=== PATIENT | female | born 1965 | race Caucasian/White ===

== ENCOUNTER 2017-12-15 20:42 | Emergency (ER) | payer SELFPAY ==
[~2017-12-15] VITALS: Ht 152.4 cm; Wt 65.0 kg
[2017-12-15 20:50] VITALS: BP 144/73; PULSE 126; RESP 20; TEMP 100.9; O2SAT 98
[2017-12-15] MEDS ORDERED: SODIUM CHLOR 0.9% 1000 ML INJ 1,000 ML IV SCH (21:02)
--- NOTE | 2017-12-15 21:07 | PD ---
HPI Chief Complaint: Cold / Flu Symptoms Time Seen by Provider: 20:56 Travel History International Travel<30 days: No Contact w/Intl Traveler<30days: No Traveled to known affect area: No History of Present Illness HPI 52-year-old female with no significant past medical history presents for evaluation of cough, congestion, sore throat, bilateral ear pressure and fevers and chills. Symptoms started yesterday. The cough is primarily dry. Sore throat hurts to swallow. She has been sleeping today and using NyQuil but symptoms persist which prompted evaluation. She reports that her daughter has similar symptoms. She denies recent travel. She denies abdominal pain, nausea or vomiting, diarrhea or constipation. No other complaints at this time. [facility] Past Medical History Medical History: Denies Significant Hx Diminished Hearing: No Tetanus Vaccination: Unknown Influenza Vaccination: No ?: Not LMP: menapause Past Surgical History Cholecystectomy: Yes Social History Alcohol Use: No Tobacco Use: Yes Substance Use: No Allergies-Medications (Allergen,Severity, Reaction): Coded Allergies: No Known Allergies (Unverified , 12/15/17) Reported Meds & Prescriptions Reported Meds & Active Scripts Active Azithromycin 250 Mg Tab 250 Mg PO DAILY 4 Days Review of Systems Except as stated in HPI: all other systems reviewed are Neg Physical Exam Narrative GENERAL: Well-developed well-nourished female who is coughing during examination. She is noted to be tachycardic with a low-grade fever. SKIN: Warm and dry. HEAD: Atraumatic. Normocephalic. EYES: Pupils equal and round. No scleral icterus. No injection or drainage. ENT: No nasal bleeding or discharge. Mucous membranes pink and moist. There is oral pharyngeal erythema without exudate. Uvula midline with no mass- effect. Voice is not hoarse or muffled no stridor or drooling. Tympanic membranes appear normal without erythema or air-fluid level. NECK: Trachea midline. No JVD. No lymphadenopathy. Neck supple full range of motion. CARDIOVASCULAR: Regular rate and rhythm. No murmur appreciated. RESPIRATORY: No accessory muscle use. Clear to auscultation. Breath sounds equal bilaterally. No crackles no wheezing no rhonchi GASTROINTESTINAL: Abdomen soft, non-tender, nondistended. Hepatic and splenic margins not palpable. Data Data Last Documented VS Vital Signs Date Time Temp Pulse Resp B/P (MAP) Pulse Ox O2 Delivery O2 Flow Rate FiO2 12/15/17 22:40 113 18 117/56 (76) 100 12/15/17 20:50 100.9 Orders Orders Sodium Chlor 0.9% 1000 Ml Inj (Ns 1000 M (12/15/17 21:02) Influenzae A/B Antigen (12/15/17 21:02) Complete Blood Count With Diff (12/15/17 21:02) Basic Metabolic Panel (Bmp) (12/15/17 21:02) Group A Rapid Strep Screen (12/15/17 21:02) Chest, Single Ap (12/15/17 ) Ketorolac Inj (Toradol Inj) (12/15/17 21:15) Strep Culture (Group A) (12/15/17 21:17) Azithromycin Inj (Zithromax Inj) (12/15/17 22:30) Ed Discharge Order (12/15/17 22:41) Labs Laboratory Tests Test 12/15/17 21:17 White Blood Count 14.7 TH/MM3 Red Blood Count 4.71 MIL/MM3 Hemoglobin 14.2 GM/DL Hematocrit 41.6 % Mean Corpuscular Volume 88.3 FL Mean Corpuscular Hemoglobin 30.1 PG Mean Corpuscular Hemoglobin Concent 34.1 % Red Cell Distribution Width 13.0 % Platelet Count 286 TH/MM3 Mean Platelet Volume 8.3 FL Neutrophils (%) (Auto) 84.1 % Lymphocytes (%) (Auto) 9.4 % Monocytes (%) (Auto) 5.3 % Eosinophils (%) (Auto) 0.8 % Basophils (%) (Auto) 0.4 % Neutrophils # (Auto) 12.3 TH/MM3 Lymphocytes # (Auto) 1.4 TH/MM3 Monocytes # (Auto) 0.8 TH/MM3 Eosinophils # (Auto) 0.1 TH/MM3 Basophils # (Auto) 0.1 TH/MM3 CBC Comment DIFF FINAL Differential Comment Blood Urea Nitrogen 11 MG/DL Creatinine 1.17 MG/DL Random Glucose 127 MG/DL Calcium Level 9.3 MG/DL Sodium Level 136 MEQ/L Potassium Level 4.4 MEQ/L Chloride Level 101 MEQ/L Carbon Dioxide Level 22.4 MEQ/L Anion Gap 13 MEQ/L Estimat Glomerular Filtration Rate 49 ML/MIN MDM Medical Decision Making Medical Screen Exam Complete: Yes Emergency Medical Condition: Yes Medical Record Reviewed: Yes Differential Diagnosis Influenza, pharyngitis, pneumonia, bronchitis, otitis media, sinusitis Narrative Course 52-year-old female with 2 days of cough, sore throat, congestion, fevers and chills. Plan is for chest x-ray, influenza antigen, rapid strep screen, basic lab work, IV fluids, Toradol. Lab work reveals a WBC count of 14.7 with 84% neutrophils, BMP reveals a GFR 49 , glucose 127, influenza negative, rapid strep screen negative, chest x-ray reveals scarring at the right lung base with no other abnormalities. Clinically I suspect that the patient could have an early pneumonia given her fevers, leukocytosis, cough and congestion. She will be treated as such with azithromycin, first dose given IV tonight. Stable for discharge. Diagnosis Primary Impression: Respiratory infection Additional Instructions: Medication as prescribed. Stay well hydrated and well-nourished. Return for any emergent medical conditions. Med/Other Pt SpecificInfo: Prescription(s) given Scripts Azithromycin (Azithromycin) 250 Mg Tab 250 MG PO DAILY for Infection for 4 Days, #4 TAB 0 Refills Prov: Martinez Washburn MD 12/15/17 Disposition: 01 DISCHARGE HOME Condition: Stable Edvin Salas Dec 15, 2017 21:07
[2017-12-15] MEDS ORDERED: KETOROLAC TROMETHAMINE 30 MG/ML (IVP) VIAL IV PUSH ONE (21:15)
--- NOTE | 2017-12-15 21:50 | RADRPT ---
EXAM DATE/TIME: 12/15/2017 21:18 [facility] COMPARISON: No previous studies available for comparison. INDICATIONS : Cough, congestion MEDICAL HISTORY : None. SURGICAL HISTORY : None. ENCOUNTER: Initial ACUITY: 2 days PAIN SCORE: 0/10 LOCATION: chest FINDINGS: A single view of the chest demonstrates the lungs to be symmetrically aerated without evidence of mas s, infiltrate or effusion. The cardiomediastinal contours are unremarkable. Osseous structures are intact. CONCLUSION: 1. No acute findings. Minimal linear scarring right lung base. Blu Carrera MD on December 15, 2017 at 21:47 Board Certified Radiologist. This report was verified electronically.
[2017-12-15 21:53] LABS: AUTOMATED NEUTROPHIL # 12.3 TH/MM3 (1.8-7.7); BASOPHIL # 0.1 TH/MM3 (0-0.2); BASOPHIL % 0.4 % (0.0-2.0); EOSINOPHIL # 0.1 TH/MM3 (0-0.4); EOSINOPHIL % 0.8 % (0.0-4.0); HEMATOCRIT 41.6 % (35.0-46.0); HEMOGLOBIN 14.2 GM/DL (11.6-15.3); LYMPH % 9.4 % (9.0-44.0); LYMPHOCYTE # 1.4 TH/MM3 (1.0-4.8); MEAN CELL VOLUME 88.3 FL (80.0-100.0); MEAN CORPUSCULAR HEMOGLOBIN 30.1 PG (27.0-34.0); MEAN CORPUSCULAR HGB CONC 34.1 % (32.0-36.0); MEAN PLATELET VOLUME 8.3 FL (7.0-11.0); MONO % 5.3 % (0.0-8.0); MONOCYTE # 0.8 TH/MM3 (0-0.9); NEUT % 84.1 % (16.0-70.0); PLATELET COUNT 286 TH/MM3 (150-450); RED BLOOD COUNT 4.71 MIL/MM3 (4.00-5.30); WHITE BLOOD COUNT 14.7 TH/MM3 (4.0-11.0)
[2017-12-15 22:15] LABS: BICARBONATE 22.4 MEQ/L (21.0-32.0); CALCIUM 9.3 MG/DL (8.5-10.1); CREATININE 1.17 MG/DL (0.50-1.00)
[2017-12-15] MEDS ORDERED: AZITHROMYCIN INJ 500 MG in SODIUM CHLOR 0.9% 250 ML INJ 250 ML IV ONE (22:30)
[2017-12-15 22:40] VITALS: BP 117/56; PULSE 113; RESP 18; O2SAT 100
[2017-12-15] MEDS ORDERED: AZIT250T3 PO (22:40)
== END 2017-12-16 00:03 | disposition home or self-care (01) ==
LOC: NEPD 20:42
DX: J98.8 Other specified respiratory disorders (principal); Z72.0 Tobacco use
CPT/HCPCS: 71045; 80048; 85025; 87081; 87804; 87880; 96361; 96365; 96375; 99284; J0456; J1885; J7030; J7050